=== PATIENT | female | born 1940 | race Caucasian/White ===

== ENCOUNTER → 2018-08-08 | Outpatient (CLI) | payer OTHER ==
[~2018-08-08] MED LIST: ADVAIR 250-501 EACH INH; ALLEGRA180 MG PO; ALLEGRA60 MG PO; FENOFIBRATE160 MG PO; FUROSEMIDE 20 M20 MG PO; K-DUR 20 MEQ T20 MEQ PO; LEVOXYL88 MCG PO; LISINOPRIL-HCT1 EACH PO; MUCINEX DM TABL1 TA1 PO; MUCINEX600 MG PO; MULTIVITAMINS PO; Move Free PO; OCUVITE PRESER1 EACH PO; OMEPRAZOLE 20 M20 M1 PO; OSTEO BI-FLEX1 EAC1 PO; PERCOCET 5-3251 EACH PO; POTASSIUM CHLO20 ME1 PO; PREDNISONE 10 M10 M1 PO; PREDNISONE 20 M20 MG PO; PRILOSEC 20 MG20 MG PO; SINGULAIR 10 MG10 MG PO; SPIRONOLACTONE50 MG PO; ZPAK
== END ==
LOC: M.RAD 13:00
DX: Z12.31 Encounter for screening mammogram for malignant neoplasm of breast (principal)

== ENCOUNTER → 2019-08-11 | Outpatient (CLI) | payer OTHER | LOC: M.RAD 10:29 | DX: Z12.31 Encounter for screening mammogram for malignant neoplasm of breast (principal) ==

== ENCOUNTER → 2020-06-21 | Outpatient (CLI) | payer OTHER | LOC: M.ULTRA 15:36 | PROVIDERS: ATTEND Registered Nurse Diabetes Educator | DX: R60.9 Edema, unspecified (principal) ==

== ENCOUNTER → 2020-10-04 | Outpatient (CLI) | payer OTHER | LOC: M.RAD 10:12 | PROVIDERS: ATTEND Registered Nurse Diabetes Educator | DX: Z12.31 Encounter for screening mammogram for malignant neoplasm of breast (principal) ==